=== PATIENT | male | born 1960 | race Caucasian/White ===

== ENCOUNTER 2020-02-19 05:58 | Day surgery (SDC) | payer OTHER ==
[~2020-02-19] VITALS: Ht 180.3 cm; Wt 125.0 kg
[2020-02-19] MEDS ORDERED: SODIUM CHLORIDE 0.9% 1,000 ML ONE (06:12)
[2020-02-19] MEDS ORDERED: SODIUM CHLORIDE 0.9% 1,000 ML IV ONE (06:30)
[2020-02-19 07:19] LABS: GLUCOMETER DEV NAME(LOC) SDS.; GLUCOSE,POINT OF CARE 185 MG/DL (70-110)
[2020-02-19] MEDS ORDERED: FLUT16H NASAL (08:38)
[2020-02-19] MEDS ORDERED: DIVA-111 PO (08:38)
[2020-02-19] MEDS ORDERED: LEVO75 PO (08:38)
[2020-02-19] MEDS ORDERED: DULO30CA96 PO (08:38)
[2020-02-19] MEDS ORDERED: CLOP75TA32 PO (08:38)
[2020-02-19] MEDS ORDERED: EVOL140S2 SQ (08:38)
[2020-02-19] MEDS ORDERED: FAMO40TA7 PO (08:38)
[2020-02-19] MEDS ORDERED: PRED10 PO (08:38)
[2020-02-19] MEDS ORDERED: ALBU8HFA IH (08:38)
[2020-02-19] MEDS ORDERED: LISI40TA4 PO (08:38)
[2020-02-19] MEDS ORDERED: AMLO2.5T29 PO (08:38)
[2020-02-19] MEDS ORDERED: RANO500T6 PO (08:38)
[2020-02-19] MEDS ORDERED: METF-446 PO (08:38)
[2020-02-19] MEDS ORDERED: CHLO25TA3 PO (08:38)
[2020-02-19] MEDS ORDERED: PREG150C46 PO (08:38)
[2020-02-19] MEDS ORDERED: AZIT-84 PO (08:38)
[2020-02-19] MEDS ORDERED: METO50 PO (08:38)
[2020-02-19] MEDS ORDERED: APIX5TAB PO (08:38)
[2020-02-19] MEDS ORDERED: TAMS-13 PO (08:38)
== END 2020-02-19 08:00 | disposition home or self-care (01) ==
LOC: SURGERY 05:58
PROVIDERS: ATTEND Internal Medicine Critical Care Medicine
DX: R05 Cough (principal); Z53.8 Procedure and treatment not carried out for other reasons; U07.1 COVID-19
CPT/HCPCS: 82962; 87426; 93005; J7030

== ENCOUNTER 2020-04-01 05:48 | Day surgery (SDC) | payer OTHER ==
[~2020-04-01] VITALS: Ht 180.3 cm; Wt 124.5 kg
[~2020-04-01 05:48] MED LIST: ALBU8HFA IH; AMLO2.5T29 PO; APIX5TAB PO; AZIT-84 PO; CHLO25TA3 PO; CLOP75TA32 PO; DIVA-111 PO; DULO30CA96 PO; EVOL140S2 SQ; FAMO40TA7 PO; FLUT16H NASAL; LEVO75 PO; LISI40TA4 PO; METF-446 PO; METO50 PO; PRED10 PO; PREG150C46 PO; RANO500T6 PO; SODIUM CHLORIDE 0.9% 1,000 ML ONE; TAMS-13 PO
[2020-04-01] MEDS ORDERED: LIDOCAINE 4% 50 ML SOLUTION TP ONE (05:49)
[2020-04-01] MEDS ORDERED: ALBUTEROL SULFATE 2.5 MG/0.5 ML NEB SOLUTION NEB ONE (05:49)
[2020-04-01] MEDS ORDERED: LIDOCAINE 2% 30 ML JELLY TP ONE (05:49)
[2020-04-01] MEDS ORDERED: BENZOCAINE 20% 50 MCG/SPRAY 57 GM TP ONE (05:49)
[2020-04-01] MEDS ORDERED: SODIUM CHLORIDE 0.9% 1,000 ML IV ONE (06:00)
[2020-04-01 07:18] LABS: COVID AG,FIA SOURCE NASOPHARYNGEAL
[2020-04-01] MEDS ORDERED: MIDAZOLAM HCL 2 MG/2 ML VIAL ONE (07:44)
[2020-04-01] MEDS ORDERED: FentaNYL CITRATE-PF 100 MCG/2 ML VIAL ONE (07:44)
[2020-04-01] MEDS ORDERED: MethylPREDNISolone SOD SUCC 125 MG/2 ML VIAL IVP ONE (09:00)
[2020-04-01] MEDS ORDERED: MethylPREDNISolone SOD SUCC 125 MG/2 ML VIAL ONE (09:18)
[2020-04-01] MEDS ORDERED: OXYGEN THERAPY IH SCH (20:00)
== END 2020-04-01 10:30 | disposition home or self-care (01) ==
LOC: SURGERY 05:48
PROVIDERS: ATTEND Internal Medicine Critical Care Medicine
DX: J38.4 Edema of larynx (principal); B37.0 Candidal stomatitis; I69.351 Hemiplegia and hemiparesis following cerebral infarction affecting right dominant side; I25.2 Old myocardial infarction; G47.30 Sleep apnea, unspecified; E78.00 Pure hypercholesterolemia, unspecified; Z20.828 Contact with and (suspected) exposure to other viral communicable diseases; Z72.89 Other problems related to lifestyle; Z95.5 Presence of coronary angioplasty implant and graft; Z98.890 Other specified postprocedural states; E03.9 Hypothyroidism, unspecified; Z79.01 Long term (current) use of anticoagulants; Z79.899 Other long term (current) drug therapy
CPT/HCPCS: 31623; 31624; 71045; 87015; 87070; 87077; 87101; 87186; 87205; 87206; 87220; 87426; 88108; 88312; 93005; C9803; J2250; J2930; J3010; J7030; J7613; Z7610